=== PATIENT | male | born 2000 | race Caucasian/White ===

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

== ENCOUNTER 2020-04-04 09:11 | Inpatient (IN) | payer OTHER, MEDICAID ==
[~2020-04-04] VITALS: Ht 175.3 cm; Wt 75.0 kg
[2020-04-04] MEDS ORDERED: DiphenhydrAMINE HCL 50 MG/ML VIAL IM ONE (19:15)
[2020-04-04] MEDS ORDERED: LORazepam 2 MG/ML VIAL IM ONE (19:15)
[2020-04-04] MEDS ORDERED: HALOPERIDOL LACTATE 5 MG/ML VIAL IM ONE (19:15)
[2020-04-04 20:27] LABS: BASOPHILS % (AUTO) 0.5 % (0.0-2.0); EOSINOPHILS % (AUTO) 3.4 % (1.0-6.0); HEMATOCRIT 40.3 % (41-53); HEMOGLOBIN 13.4 g/dL (13.5-17.5); LYMPHOCYTES # (AUTO) 1.8 K/uL (1.0-4.8); LYMPHOCYTES % (AUTO) 31.1 % (22.0-44.0); MEAN CORPUSCULAR HEMOGLOBIN 27.2 pg (26.0-34.0); MEAN CORPUSCULAR HGB CONC 33.1 G/dL (31.0-37.0); MEAN CORPUSCULAR VOLUME 82 fL (80-100); MONOCYTES # (AUTO) 0.6 K/uL (0.1-1.0); MONOCYTES % (AUTO) 10.4 % (2.0-9.0); NEUTROPHILS # (AUTO) 3.2 K/uL (1.8-7.7); NEUTROPHILS % (AUTO) 54.6 % (40.0-70.0); PLATELET COUNT (AUTO) 254 K/uL (150-450); RED BLOOD CELL COUNT(AUTO) 4.91 MIL/uL (4.50-5.90); RED CELL DISTRIBUTION WIDTH 14.9 % (11.5-14.5)
[2020-04-04 20:37] LABS: ANION GAP 7 mmol/L (8-16); CALCIUM, TOTAL 9.1 mg/dL (8.8-10.5); CARBON DIOXIDE 29 mmol/L (22-29); CHLORIDE 100 mmol/L (98-107); CREATININE 1.07 mg/dL (0.60-1.30); GLOMERULAR FILTR. RATE CALC > 60 mL/min (>60); GLUCOSE,RANDOM 96 mg/dL (70-110); POTASSIUM 3.6 mmol/L (3.5-5.1); SODIUM SERUM 136 mmol/L (136-145); UREA NITROGEN, BLOOD 11 mg/dL (7-18)
[2020-04-04 20:44] VITALS: BP 101/58
[2020-04-04 20:44] LABS: ALANINE AMINOTRANSFERASE 19 U/L (12-78); ALBUMIN 3.4 g/dL (3.4-5.0); ALKALINE PHOSPHATASE 116 U/L (46-116); ASPARTATE AMINOTRANSFERASE 23 U/L (15-37); BILIRUBIN,TOTAL 0.4 mg/dL (0.1-1.0); TOTAL PROTEIN, SERUM 7.1 g/dL (6.4-8.2)
[2020-04-04] MEDS ORDERED: CYANOCOBALAMIN 1,000 MCG/ML VIAL IM ONE (20:45)
[2020-04-04] MEDS ORDERED: TUBERCULIN, PURIFIED PROTEIN DERIVATIVE 5 TU/0.1 ML SYRINGE ID ONE (20:45)
[2020-04-04] MEDS ORDERED: IBUPROFEN 600 MG TABLET PO PRN (20:45)
[2020-04-04] MEDS ORDERED: LORazepam 2 MG TABLET PO PRN (20:45)
[2020-04-04] MEDS ORDERED: MAG HYDROX/AL HYDROX/SIMETH ES 30 ML SUSPENSION UDCUP PO PRN ×2 (20:45)
[2020-04-04] MEDS ORDERED: GuaiFENesin/D-METHORPHAN [SUGAR-FREE] 200-20MG/10 ML SYRUP UDCUP PO PRN (20:45)
[2020-04-04] MEDS ORDERED: ACETAMINOPHEN 325 MG TABLET PO PRN (20:45)
[2020-04-04] MEDS ORDERED: MAGNESIUM HYDROXIDE SUSPENSION 30 ML UDCUP PO PRN (20:45)
[2020-04-04] MEDS ORDERED: ZOLPIDEM TARTRATE 10 MG TABLET PO PRN (20:45)
[2020-04-04] MEDS ORDERED: HydrOXYzine PAMOATE 50 MG CAPSULE PO PRN ×2 (20:45)
[2020-04-04] MEDS ORDERED: PROMETHAZINE HCL 25 MG TABLET PO PRN (20:45)
[2020-04-04] MEDS ORDERED: CloNIDine HCL 0.1 MG TABLET PO PRN (20:45)
[2020-04-04] MEDS ORDERED: LOPERAMIDE HCL 2 MG CAPSULE PO PRN ×2 (20:45)
[2020-04-04] MEDS ORDERED: OLANZapine 5 MG RAPDIS TABLET PO PRN (20:45)
[2020-04-04 20:47] VITALS: BP 101/58
[2020-04-04] MEDS: DIVALPROEX SODIUM 500 MG ER TABLET PO SCH (21:00)
[2020-04-04] MEDS: OLANZapine 5 MG RAPDIS TABLET PO SCH (21:00)
[2020-04-05] MEDS: CloNIDine HCL 0.1 MG TABLET PO SCH ×4 (06:00→21:23)
[2020-04-05] MEDS: ACAMPROSATE CALCIUM 333 MG DR TABLET PO SCH ×3 (09:30→16:44)
[2020-04-05] MEDS: THIAMINE 100 MG TABLET PO SCH ×2 (09:30→16:44)
[2020-04-05] MEDS: MULTIVITAMINS WITH MINERALS, THERAPEUTIC TABLET PO SCH (09:30)
[2020-04-05] MEDS: FOLIC ACID 1 MG TABLET PO SCH (09:30)
[2020-04-05 12:30] VITALS: BP 108/71
[2020-04-05 16:30] VITALS: BP 124/82
[2020-04-05 16:38] VITALS: BP 124/82
[2020-04-05] MEDS: OLANZapine 5 MG RAPDIS TABLET PO SCH (21:08)
[2020-04-05] MEDS: DIVALPROEX SODIUM 500 MG ER TABLET PO SCH (21:09)
[2020-04-05 21:21] VITALS: BP 128/78
[2020-04-06 06:08] VITALS: BP 121/84
[2020-04-06] MEDS: CloNIDine HCL 0.1 MG TABLET PO SCH ×2 (06:08→12:08)
[2020-04-06 07:00] LABS: HEMOGLOBIN A1C 5.4 % (3.8-5.6)
[2020-04-06 07:09] LABS: CHOL/HDL RATIO 2.8 (4.2-7.3); FREE T4 (FREE THYROXINE) 1.26 ng/dL (0.76-1.46); THYROID STIMULATING HORMONE 0.59 uIU/mL (0.36-3.74)
[2020-04-06] MEDS: MULTIVITAMINS WITH MINERALS, THERAPEUTIC TABLET PO SCH (08:36)
[2020-04-06] MEDS: FOLIC ACID 1 MG TABLET PO SCH (08:36)
[2020-04-06] MEDS: THIAMINE 100 MG TABLET PO SCH (08:36)
[2020-04-06] MEDS: ACAMPROSATE CALCIUM 333 MG DR TABLET PO SCH ×2 (08:36→12:09)
[2020-04-06 08:44] VITALS: BP 123/76
[2020-04-06 08:46] VITALS: BP 123/76
[2020-04-06 12:12] VITALS: BP 101/70
[2020-04-06] MEDS ORDERED: CLON0.1T83 PO (15:29)
[2020-04-06] MEDS ORDERED: ACAM333T7 PO (15:29)
[2020-04-06] MEDS ORDERED: DIVA-80 PO (15:30)
[2020-04-06] MEDS ORDERED: OLAN7.5T2 PO (15:30)
== END 2020-04-06 17:37 | DRG 885 ==
LOC: EMS 09:11 → 3EC 20:12 → UNDOADMIN 20:12 → 3EC 20:40
PROVIDERS: ADMIT Psychiatry & Neurology Psychiatry; ATTEND Psychiatry & Neurology Psychiatry
DX: F20.9 Schizophrenia, unspecified (principal); R45.851 Suicidal ideations; F29 Unspecified psychosis not due to a substance or known physiological condition; Z59.0 Homelessness; F12.90 Cannabis use, unspecified, uncomplicated; Z91.19 Patient's noncompliance with other medical treatment and regimen; F17.210 Nicotine dependence, cigarettes, uncomplicated; D64.9 Anemia, unspecified; F11.10 Opioid abuse, uncomplicated
CPT/HCPCS: 83036; 84439; 84443; 86592; 99291; G0480; J3420

== ENCOUNTER 2024-09-23 05:08 | Inpatient (IN) | payer MEDICAID, OTHER ==
[~2024-09-23] VITALS: Ht 177.8 cm; Wt 73.5 kg
[~2024-09-23 05:08] MED LIST: ACAM333T7 PO; CLON0.1T2 PO; DIVA-153 PO; OLAN7.5T22 PO
[2024-09-23 06:47] LABS: COVID AG,FIA SOURCE NASAL SWAB
[2024-09-23 06:54] LABS: BASOPHILS % (AUTO) 0.2 % (0.0-2.0); EOSINOPHILS % (AUTO) 0.1 % (1.0-6.0); HEMATOCRIT 39.2 % (41-53); HEMOGLOBIN 13.2 g/dL (13.5-17.5); LYMPHOCYTES # (AUTO) 1.1 K/uL (1.0-4.8); LYMPHOCYTES % (AUTO) 13.2 % (22.0-44.0); MEAN CORPUSCULAR HGB CONC 33.5 G/dL (31.0-37.0); MEAN CORPUSCULAR VOLUME 84 fL (80-100); MONOCYTES # (AUTO) 0.5 K/uL (0.1-1.0); MONOCYTES % (AUTO) 5.9 % (2.0-9.0); NEUTROPHILS # (AUTO) 6.9 K/uL (1.8-7.7); NEUTROPHILS % (AUTO) 80.6 % (40.0-70.0); PLATELET COUNT (AUTO) 212 K/uL (150-450); RED BLOOD CELL COUNT(AUTO) 4.69 MIL/uL (4.50-5.90); RED CELL DISTRIBUTION WIDTH 13.8 % (11.5-14.5); WHITE BLOOD COUNT (AUTO) 8.5 K/uL (4.5-11.0)
[2024-09-23 06:55] LABS: ANION GAP 5 mmol/L (8-16); CALCIUM, TOTAL 8.5 mg/dL (8.8-10.5); CARBON DIOXIDE 29 mmol/L (22-29); CHLORIDE 104 mmol/L (98-107); CREATININE 0.73 mg/dL (0.60-1.30); GLOMERULAR FILTR. RATE CALC > 60 mL/min (>60); GLUCOSE,RANDOM 109 mg/dL (70-110); POTASSIUM 3.8 mmol/L (3.5-5.1); SODIUM SERUM 137 mmol/L (136-145); UREA NITROGEN, BLOOD 10 mg/dL (7-18)
[2024-09-23 07:02] LABS: ALCOHOL, BLOOD (SERUM) < 3 mg/dL (0-10)
[2024-09-23 07:11] LABS: SARS-COV2 (COVID) ANTIGEN,FIA Negative (Negative)
[2024-09-23 08:13] LABS: VALPROIC ACID < 3 mcg/mL (50-100)
[2024-09-23] MEDS ORDERED: LORazepam 2 MG TABLET PO PRN (09:15)
[2024-09-23] MEDS ORDERED: ZOLPIDEM TARTRATE 10 MG TABLET PO PRN (09:15)
[2024-09-23] MEDS ORDERED: QUEtiapine FUMARATE 100 MG TABLET PO PRN (09:15)
[2024-09-23 14:00] VITALS: O2SAT 100
[2024-09-23 17:05] VITALS: BP 105/71; PULSE 71; RESP 18; TEMP 98.3; O2SAT 100
[2024-09-24 00:12] VITALS: BP 105/67; PULSE 93; RESP 18; TEMP 98.3; O2SAT 98
[2024-09-24 09:28] VITALS: BP 119/76; PULSE 102; RESP 18; TEMP 97.4; O2SAT 97
[2024-09-24] MEDS ORDERED: MAGNESIUM HYDROXIDE SUSPENSION 30 ML UDCUP PO PRN (10:30)
[2024-09-24] MEDS ORDERED: LOPERAMIDE HCL 2 MG CAPSULE PO PRN (10:30)
[2024-09-24] MEDS ORDERED: BACITRACIN 28 GM OINTMENT TP PRN (10:30)
[2024-09-24] MEDS ORDERED: IBUPROFEN 600 MG TABLET PO PRN (10:30)
[2024-09-24] MEDS ORDERED: PETROLATUM,WHITE 28 GM JELLY TP PRN (10:30)
[2024-09-24] MEDS ORDERED: ALBUTEROL SULFATE HFA 90 MCG/PUFF 8 GM INHALER IH PRN (10:30)
[2024-09-24] MEDS ORDERED: CloNIDine HCL 0.1 MG TABLET PO PRN (10:30)
[2024-09-24] MEDS ORDERED: MAG HYDROX/ALUMINUM HYD/SIMETH ES 30 ML SUSPENSION UDCUP PO PRN (10:30)
[2024-09-24] MEDS ORDERED: BENZOCAINE/MENTHOL LOZENGE PO PRN (10:30)
[2024-09-24] MEDS ORDERED: OMEPRAZOLE 20 MG CAPSULE PO PRN (10:30)
[2024-09-24] MEDS ORDERED: DOCUSATE SODIUM 100 MG CAPSULE PO PRN (10:30)
[2024-09-24] MEDS ORDERED: ACETAMINOPHEN 325 MG TABLET PO PRN (10:30)
[2024-09-24 22:13] VITALS: RESP 18
[2024-09-25 08:45] VITALS: RESP 18
[2024-09-25] MEDS: ONDANSETRON 4 MG TABLET PO PRN (11:07)
[2024-09-25] MEDS ORDERED: MELA5TAB40 PO (18:41)
[2024-09-25] MEDS ORDERED: DULO20CA71 PO (18:41)
[2024-09-25] MEDS ORDERED: NALT50TA33 PO (18:41)
[2024-09-25] MEDS ORDERED: GABA-1201 PO (18:41)
[2024-09-25] MEDS ORDERED: GABAPENTIN 400 MG CAPSULE PO PRN (18:45)
[2024-09-25 20:52] VITALS: RESP 18
[2024-09-25] MEDS: MELATONIN 5 MG TABLET PO SCH (21:20)
[2024-09-26 08:19] VITALS: BP 92/66; PULSE 98; RESP 18; TEMP 97.6; O2SAT 97
[2024-09-26] MEDS: DULoxetine HCL 20 MG CAPSULE PO SCH (09:00)
[2024-09-26] MEDS: NALTREXONE HCL 50 MG TABLET PO SCH (09:00)
== END 2024-09-26 12:10 | disposition home or self-care (01) | DRG 750 ==
LOC: EMS 05:09 → 3EI 14:56
PROVIDERS: ADMIT Psychiatry & Neurology Psychiatry; ATTEND Psychiatry & Neurology Psychiatry
PROC: GZHZZZZ Group Psychotherapy (ICD-10-PCS; principal; 2024-09-24)
PROC: GZ56ZZZ Individual Psychotherapy, Supportive (ICD-10-PCS; 2024-09-24)
DX: F25.0 Schizoaffective disorder, bipolar type (principal); R45.851 Suicidal ideations; F33.2 Major depressive disorder, recurrent severe without psychotic features; Z91.148 Patient's other noncompliance with medication regimen for other reason; Z20.822 Contact with and (suspected) exposure to COVID-19; F41.9 Anxiety disorder, unspecified; K21.9 Gastro-esophageal reflux disease without esophagitis; F12.20 Cannabis dependence, uncomplicated; F17.210 Nicotine dependence, cigarettes, uncomplicated; K59.00 Constipation, unspecified; G47.00 Insomnia, unspecified; Z71.6 Tobacco abuse counseling; Z79.899 Other long term (current) drug therapy
CPT/HCPCS: 80048; 80164; 85025; 99285; G0480; Q0162